=== PATIENT | female | born 1995 | race Caucasian/White ===

== ENCOUNTER → 2016-09-05 | Day surgery (SDC) | payer BC, MEDICAID ==
[~2016-09-05] MED LIST: Ciprofloxacin in D5W 400 MG in Premix Bag 1 BAG IV ONE; Midazolam 1 MG/ML 2 ML SDV ONE; Propofol 200 MG/20 ML SDV ONE; Sodium Chloride 0.9% 1,000 ML IV SCH; ceFAZolin 2 GM in Premix Bag 1 BAG IV ONE; fentaNYL 100 MCG/2 ML SDV ONE
[2016-09-05] MEDS: Bupivacaine 0.5%/EPINEPHrine 1:200,000 50 ML MDV ONE ×2 (09:39→10:38)
[2016-09-05] MEDS: Lidocaine 1% 50 ML MDV ONE ×2 (09:40→10:38)
[2016-09-05 11:21] VITALS: BP 108/59
--- NOTE | 2016-09-05 17:44 | OR ---
DATE OF PROCEDURE: 09/05/2016 PROCEDURE PERFORMED: Removal of Port-A-Cath, left subclavian vein. COMPLICATIONS: None. PRODUCTION LINE WORKER: None. ANESTHESIA: MAC. RISKS: Risks, benefits, alternatives, and limitations including, but not limited to infection, bleeding were explained to the patient and she wished to proceed. PROCEDURE IN DETAIL: The patient was placed in the supine position. The Port-A-Cath on the left side was readily identified. This was anesthetized with lidocaine mixed with epinephrine for a total of 30 mL. An elliptical incision was made to remove the previous scar. This was carried down with a 15 blade to the port whose capsule was opened and this was subsequently removed. Direct pressure was placed on the subclavian vein for approximately 5 minutes. No bleeding was noted after this. This was then thoroughly irrigated. The wound was closed with 3-0 Vicryl and 4-0 Vicryl in interrupted running fashion. Dermabond was applied. The patient tolerated the procedure well. Andrew Gusman MD /[id number]
== END ==
LOC: JP.SDS 08:42
PROVIDERS: ATTEND Surgery
DX: Z45.2 Encounter for adjustment and management of vascular access device (principal); E66.9 Obesity, unspecified; E11.9 Type 2 diabetes mellitus without complications; Z68.30 Body mass index [BMI] 30.0-30.9, adult; Z88.1 Allergy status to other antibiotic agents; Z88.8 Allergy status to other drugs, medicaments and biological substances; Z87.891 Personal history of nicotine dependence; Z90.49 Acquired absence of other specified parts of digestive tract
CPT/HCPCS: 36415; 36590; 80048; 85027; J0744; J2250; J2704; J3010; J7040

== ENCOUNTER 2017-05-15 08:29 | Day surgery (SDC) | payer BC, MEDICAID ==
[~2017-05-15 08:29] MED LIST changes: +Bupivacaine 0.5% 50 ML MDV ONE; -Ciprofloxacin in D5W 400 MG in Premix Bag 1 BAG IV ONE; +Lidocaine 1% with EPINEPHrine 1:100,000 50 ML MDV ONE; -Midazolam 1 MG/ML 2 ML SDV ONE; -Propofol 200 MG/20 ML SDV ONE; -Sodium Chloride 0.9% 1,000 ML IV SCH; -ceFAZolin 2 GM in Premix Bag 1 BAG IV ONE; -fentaNYL 100 MCG/2 ML SDV ONE
[2017-05-15] MEDS ORDERED: Dextrose 5%-Lactated Ringers 1,000 ML IV SCH (08:30)
[2017-05-15 09:04] VITALS: BP 102/60
[2017-05-15] MEDS ORDERED: Midazolam 1 MG/ML 2 ML SDV ONE (10:00)
[2017-05-15] MEDS ORDERED: fentaNYL 100 MCG/2 ML SDV ONE (10:00)
[2017-05-15] MEDS ORDERED: Propofol 200 MG/20 ML SDV ONE (10:00)
== END 2017-05-15 10:50 | disposition home or self-care (01) ==
LOC: JP.SDS 08:29
PROVIDERS: ATTEND Surgery
DX: Z53.8 Procedure and treatment not carried out for other reasons (principal); C81.00 Nodular lymphocyte predominant Hodgkin lymphoma, unspecified site
CPT/HCPCS: 81025; J7042; J2250; J2704; J3010